=== PATIENT | female | born 1995 | race American Indian/Alaskan Native ===

== ENCOUNTER 2016-06-05 09:40 | Emergency (ER) | payer SELFPAY ==
[2016-06-05 10:25] VITALS: BP 135/88
[2016-06-05 11:25] LABS: Bilirubin,Urine NEG (Negative); Blood,Urine NEG (Negative); Ketones,Urine 20 mg/dL (Negative); Leukocyte Esterase,Urine NEG (Negative); Mucus,Urine FEW /HPF; Nitrite,Urine NEG (Negative); Protein,Urine <15 mg/dL mg/dL (Negative); Urobilinogen,Urine < 2.0 mg/dL (<2.0)
[2016-06-05 11:44] LABS: Alanine Aminotransferase 9 units/L (7-56); Albumin 3.9 g/dL (3.9-5); Alkaline Phosphatase 42 units/L (35-129); Anion Gap 17 mmol/L; Blood Urea Nitrogen 12 mg/dL (7-17); Calcium 9.1 mg/dL (8.4-10.2); Carbon Dioxide 23 mmol/L (22-30); Chloride 100.9 mmol/L (98-107); Glucose 78 mg/dL (65-100); Lipase 20 units/L (13-60); Potassium 4.1 mmol/L (3.6-5.0); Sodium 137 mmol/L (137-145); Total Protein 7.8 g/dL (6.3-8.2)
[2016-06-05 11:45] LABS: Basophils % (Auto) 0.6 % (0.0-1.8); Eosinophils % (Auto) 1.6 % (0.0-4.3); Hematocrit 36.2 % (30.3-42.9); Hemoglobin 11.4 gm/dl (10.1-14.3); Mean Corpuscular HGB Conc 31 % (30-34); Mean Corpuscular Volume 81 fl (79-97); Platelet Count 211 K/mm3 (140-440); Red Blood Count 4.45 M/mm3 (3.65-5.03); Red Cell Distribution Width 16.4 % (13.2-15.2); White Blood Count 5.6 K/mm3 (4.5-11.0)
[2016-06-05 11:48] LABS: Mean Corpuscular Hemoglobin 26 pg (28-32)
--- NOTE | 2016-06-07 12:52 | ED Elopement Review ---
ED Pt Elopement review - Results review Lab results: Laboratory Tests 06/05/16 06/05/16 06/05/16 11:11 11:11 11:11 WBC 5.6 RBC 4.45 Hgb 11.4 Hct 36.2 MCV 81 MCH 26 L MCHC 31 RDW 16.4 H Plt Count 211 Lymph % (Auto) 36.2 H [place] % (Auto) 3.8 Eos % (Auto) 1.6 Baso % (Auto) 0.6 Lymph # 2.0 [place] # 0.2 Eos # 0.1 Baso # 0.0 Seg Neutrophils % 57.8 Seg Neutrophils # 3.2 Sodium 137 Potassium 4.1 Chloride 100.9 Carbon Dioxide 23 Anion Gap 17 BUN 12 Creatinine 0.4 L Estimated GFR > 60 BUN/Creatinine Ratio 30.00 Glucose 78 Calcium 9.1 Total Bilirubin 1.0 AST 14 ALT 9 Alkaline Phosphatase 42 Total Protein 7.8 Albumin 3.9 Albumin/Globulin Ratio 1.0 Lipase 20 HCG, Qual Negative Urine Color Urine Turbidity Urine pH Ur Specific [place] Urine Protein Urine Glucose (UA) Urine Ketones Urine Blood Urine Nitrite Urine Bilirubin Urine Urobilinogen Ur Leukocyte Esterase Urine WBC (Auto) Urine RBC (Auto) U Epithel Cells (Auto) Urine Mucus 06/05/16 Unknown WBC RBC Hgb Hct MCV MCH MCHC RDW Plt Count Lymph % (Auto) [place] % (Auto) Eos % (Auto) Baso % (Auto) Lymph # [place] # Eos # Baso # Seg Neutrophils % Seg Neutrophils # Sodium Potassium Chloride Carbon Dioxide Anion Gap BUN Creatinine Estimated GFR BUN/Creatinine Ratio Glucose Calcium Total Bilirubin AST ALT Alkaline Phosphatase Total Protein Albumin Albumin/Globulin Ratio Lipase HCG, Qual Urine Color Yellow Urine Turbidity Clear Urine pH 6.0 Ur Specific [place] 1.025 Urine Protein <15 mg/dl Urine Glucose (UA) Neg Urine Ketones 20 Urine Blood Neg Urine Nitrite Neg Urine Bilirubin Neg Urine Urobilinogen < 2.0 Ur Leukocyte Esterase Neg Urine WBC (Auto) 1.0 Urine RBC (Auto) 3.0 U Epithel Cells (Auto) 2.0 Urine Mucus Few - Call Back decision Pt Call Back Decision: No action required
== END 2016-06-05 20:00 | disposition left against medical advice (07) ==
LOC: ED 09:40
DX: R10.11 Right upper quadrant pain (principal); Z53.21 Procedure and treatment not carried out due to patient leaving prior to being seen by health care provider
CPT/HCPCS: 36415; 80053; 81001; 83690; 84703; 85025

== ENCOUNTER 2016-06-08 12:00 | Emergency (ER) | payer SELFPAY ==
--- NOTE | 2016-06-08 12:34 | Emergency Department Report ---
Chief Complaint: Abdominal Pain Stated Complaint: ABDOMINAL PAIN Time Seen by Provider: 06/08/16 12:31 - HPI History of Present Illness: pt c/o abd pain since . PT denies f/c/n/v - ROS Review of Systems: + upper abd pain not worse after eating feels better with breath holding denies f/c/n/v - Exam Physical Exam: pt looks well, non toxic. steady gait. gcs 15 no ruq tenderness, + epigastric tenderness MSE screening note: Focused history and physical exam performed. Due to findings the following was ordered: labs ED Disposition for MSE Condition: Stable
[2016-06-08 12:54] LABS: Basophils % (Auto) 0.6 % (0.0-1.8); Eosinophils % (Auto) 2.2 % (0.0-4.3); Hematocrit 35.2 % (30.3-42.9); Hemoglobin 11.3 gm/dl (10.1-14.3); Mean Corpuscular HGB Conc 32 % (30-34); Mean Corpuscular Hemoglobin 26 pg (28-32); Mean Corpuscular Volume 81 fl (79-97); Platelet Count 225 K/mm3 (140-440); Red Blood Count 4.33 M/mm3 (3.65-5.03); Red Cell Distribution Width 16.5 % (13.2-15.2); White Blood Count 5.1 K/mm3 (4.5-11.0)
[2016-06-08 13:13] LABS: Albumin/Globulin Ratio 1.2 %; Alkaline Phosphatase 50 units/L (35-129); Anion Gap 15 mmol/L; Bilirubin,Total 0.4 mg/dL (0.1-1.2); Blood Urea Nitrogen 12 mg/dL (7-17); Calcium 9.3 mg/dL (8.4-10.2); Carbon Dioxide 23 mmol/L (22-30); Chloride 103.8 mmol/L (98-107); Glucose 90 mg/dL (65-100); Lipase 29 units/L (13-60); Sodium 138 mmol/L (137-145); Total Protein 7.4 g/dL (6.3-8.2)
[2016-06-08 13:20] LABS: Alanine Aminotransferase < 5 units/L (7-56)
[2016-06-08 22:55] VITALS: BP 151/86
[2016-06-08 23:20] LABS: Bacteria,Urine 2+ /HPF (Negative); Bilirubin,Urine NEG (Negative); Blood,Urine NEG (Negative); Ketones,Urine TR mg/dL (Negative); Leukocyte Esterase,Urine MOD (Negative); Mucus,Urine 3+ /HPF; Nitrite,Urine NEG (Negative); Urobilinogen,Urine < 2.0 mg/dL (<2.0)
[2016-06-08] MEDS ORDERED: LIDOCAINE VISCOUS 2% PO ONE (23:55)
[2016-06-08] MEDS ORDERED: ALUM-MAG HYDROX-SIMETH 200-200-20MG/5ML PO ONE (23:55)
--- NOTE | 2016-06-09 00:02 | Emergency Department Report ---
HPI - General Chief Complaint: Abdominal Pain Time Seen by Provider: 06/08/16 12:31 - HPI HPI: Room 2 The patient is a 20-year-old female presenting with a chief complaint of abdominal pain. The patient states for the past 3 days she has had sharp pain in her substernal chest epigastric region radiating to her back. Patient does admit to a pleuritic component. Patient does admit to shortness of breath. The patient admits to an occasional cough that is nonproductive. Patient denies any history of fevers. Patient denies any recent flights or long car trips. The patient currently gives her pain a score of 6/10 Location: [see above] Duration: [see above] Quality: Sharp Severity: 6/10 Modifying factors: [see above] Context: [see above] Mode of transportation: [not driving] ED Past Medical Hx - Past Medical History Previous Medical History?: No - Surgical History Past Surgical History?: No - Family History Family history: no significant - Social History Smoking Status: Never Smoker Substance Use Type: None - Medications Home Medications: Home Medications Medication Instructions Recorded Confirmed Last Taken Type Famotidine [Pepcid] 20 mg PO BID #30 tablet 06/09/16 Unknown Rx HYDROcodone/APAP 5-325 [[place] 1 - 2 each PO Q6HR PRN #14 tablet 06/09/16 Unknown Rx 5/325] ED Review of Systems ROS: Stated complaint: ABDOMINAL PAIN Other details as noted in HPI Comment: All other systems reviewed and negative Constitutional: denies: chills, fever Eyes: denies: eye pain, eye discharge, vision change ENT: denies: ear pain, throat pain Respiratory: cough, shortness of breath Cardiovascular: chest pain Endocrine: no symptoms reported Gastrointestinal: denies: abdominal pain, nausea, diarrhea Genitourinary: denies: urgency, dysuria, discharge Musculoskeletal: denies: back pain, joint swelling, arthralgia Skin: denies: rash, lesions Neurological: denies: headache, weakness, paresthesias Psychiatric: denies: anxiety, depression Hematological/Lymphatic: denies: easy bleeding, easy bruising Physical Exam - Physical Exam Vital Signs: Vital Signs 06/08/16 06/08/16 12:32 22:51 Temperature 98.6 F 98.4 F Pulse Rate 74 78 Respiratory 16 18 Rate Blood Pressure 146/89 Blood Pressure 151/86 [Left] O2 Sat by Pulse 100 100 Oximetry Physical Exam: GENERAL: The patient is well-developed well-nourished male lying on stretcher not appearing to be in acute distress. [] HEENT: Normocephalic. Atraumatic. Extraocular motions are intact. Patient has moist mucous membranes. NECK: Supple. Regular midline CHEST/LUNGS: Clear to auscultation. There is no respiratory distress noted. HEART/CARDIOVASCULAR: Regular. There is no tachycardia. There is no gallop rub or murmur. ABDOMEN: Abdomen is soft, all discomfort to palpation in epigastric region. Patient has normal bowel sounds. There is no abdominal distention. SKIN: There is no rash. There is no edema. There is no diaphoresis. NEURO: The patient is awake, alert, and oriented. The patient is cooperative. The patient has normal speech MUSCULOSKELETAL: There is no evidence of acute injury. ED Course Vital Signs 06/08/16 06/08/16 12:32 22:51 Temperature 98.6 F 98.4 F Pulse Rate 74 78 Respiratory 16 18 Rate Blood Pressure 146/89 Blood Pressure 151/86 [Left] O2 Sat by Pulse 100 100 Oximetry ED Medical Decision Making - Lab Data Result diagrams: 06/08/16 12:44 06/08/16 12:44 Laboratory Tests 06/08/16 06/08/16 06/08/16 12:44 12:44 23:04 WBC 5.1 RBC 4.33 Hgb 11.3 Hct 35.2 MCV 81 MCH 26 L MCHC 32 RDW 16.5 H Plt Count 225 Lymph % (Auto) 37.9 H [place] % (Auto) 4.9 Eos % (Auto) 2.2 Baso % (Auto) 0.6 Lymph # 1.9 [place] # 0.3 Eos # 0.1 Baso # 0.0 Seg Neutrophils % 54.4 Seg Neutrophils # 2.8 D-Dimer Sodium 138 Potassium 4.0 Chloride 103.8 Carbon Dioxide 23 Anion Gap 15 BUN 12 Creatinine 0.6 L Estimated GFR > 60 BUN/Creatinine Ratio 20.00 Glucose 90 Calcium 9.3 Total Bilirubin 0.4 AST 22 ALT < 5 L Alkaline Phosphatase 50 Total Creatine Kinase CK-MB (CK-2) CK-MB (CK-2) Rel Index Troponin T Total Protein 7.4 Albumin 4.0 Albumin/Globulin Ratio 1.2 Lipase 29 Urine Color Yellow Urine Turbidity Cloudy Urine pH 5.0 Ur Specific [place] 1.031 H Urine Protein 30 mg/dl Urine Glucose (UA) Neg Urine Ketones Tr Urine Blood Neg Urine Nitrite Neg Ur Reducing Substances Not Reportable Urine Bilirubin Neg Urine Ictotest Not Reportable Urine Urobilinogen < 2.0 Ur Leukocyte Esterase Mod Urine WBC (Auto) 24.0 H Urine RBC (Auto) 5.0 U Epithel Cells (Auto) 14.0 H Urine Bacteria (Auto) 2+ Urine Mucus 3+ Urine HCG, Qual Negative 06/09/16 06/09/16 00:21 00:21 WBC RBC Hgb Hct MCV MCH MCHC RDW Plt Count Lymph % (Auto) [place] % (Auto) Eos % (Auto) Baso % (Auto) Lymph # [place] # Eos # Baso # Seg Neutrophils % Seg Neutrophils # D-Dimer 886.24 H Sodium Potassium Chloride Carbon Dioxide Anion Gap BUN Creatinine Estimated GFR BUN/Creatinine Ratio Glucose Calcium Total Bilirubin AST ALT Alkaline Phosphatase Total Creatine Kinase 61 CK-MB (CK-2) 1.1 CK-MB (CK-2) Rel Index 1.8 Troponin T < 0.010 Total Protein Albumin Albumin/Globulin Ratio Lipase Urine Color Urine Turbidity Urine pH Ur Specific [place] Urine Protein Urine Glucose (UA) Urine Ketones Urine Blood Urine Nitrite Ur Reducing Substances Urine Bilirubin Urine Ictotest Urine Urobilinogen Ur Leukocyte Esterase Urine WBC (Auto) Urine RBC (Auto) U Epithel Cells (Auto) Urine Bacteria (Auto) Urine Mucus Urine HCG, Qual - EKG Data -: EKG Interpreted by Me EKG shows normal: sinus rhythm Rate: normal - EKG Data When compared to previous EKG there are: no significant change Interpretation: unchanged when compared t (09/12/2015) - Radiology Data Radiology results: report reviewed (CT chest), image reviewed (CT chest) CT chest (read by radiologist)-there is no PE. Lungs are clear - Differential Diagnosis gastritis, pancreatitis, pericarditis, GERD, peptic ulcer disease, PE Critical care attestation.: If time is entered above; I have spent that time in minutes in the direct care of this critically ill patient, excluding procedure time. ED Disposition Clinical Impression: Abdominal pain, Atypical chest pain Disposition: DISCHARGED TO HOME OR SELFCARE Is pt being admited?: No Does the pt Need Aspirin: No Condition: Stable Instructions: Abdominal Pain (ED), Chest Pain (ED) Additional Instructions: Return to the emergency department immediately should you develop worsening symptoms, fever, inability to tolerate food or liquid or any other concerns. 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 Please follow up with him for further evaluation) Time of Disposition: 03:01
[2016-06-09 01:01] LABS: Creatine Kinase MB 1.1 ng/mL (0.0-4.0)
[2016-06-09] MEDS ORDERED: NACL 0.9% 1000 ML 1,000 ML IV ONE (01:02)
[2016-06-09] MEDS ORDERED: PEPCID IV ONE ×2 (01:03→03:20)
[2016-06-09 02:09] LABS: Creatine Kinase 61 units/L (30-135)
[2016-06-09] MEDS ORDERED: NACL ONE (02:14)
--- NOTE | 2016-06-09 02:50 | Cat Scan Report ---
FINAL REPORT PROCEDURE: CT ANGIO CHEST TECHNIQUE: Computerized tomographic angiography of the chest was performed after the IV injection of iodinated nonionic contrast including image processing. The image data was postprocessed using 2-dimensional multiplanar reformatted (MPR) and 3-dimensional (MIP and/or volume rendered) techniques. HISTORY: chest pain, pleurisy COMPARISON: 09/09/2015 FINDINGS: Heart and pericardium: Normal. Thoracic aorta: Normal. Pulmonary vasculature: Normal. Lymph nodes: No enlarged thoracic lymph nodes. Lungs: Lungs are clear. No infiltrate, effusion or pneumothorax. The central airway is patent.. Pleural space: No effusion, thickening, or pneumothorax. Musculoskeletal structures: No significant abnormality. Upper abdominal structures: No significant abnormality. IMPRESSION: There is no evidence of pulmonary arterial emboli. The lungs are clear without infiltrate, effusion or pneumothorax.
== END 2016-06-09 03:50 | disposition home or self-care (01) ==
LOC: ED 12:00
DX: R10.13 Epigastric pain (principal); R07.89 Other chest pain
CPT/HCPCS: 36415; 71275; 80053; 81001; 81025; 82550; 82553; 83690; 84484; 85025; 85379; 93005; 93010; 96374; 99284; Q9967

== ENCOUNTER 2017-08-06 10:07 | Emergency (ER) | payer MEDICAID ==
[2017-08-06 10:34] VITALS: BP 120/78
[2017-08-06] MEDS ORDERED: TYLENOL PO ONE (11:47)
[2017-08-06] MEDS ORDERED: TYLENOL ONE ×2 (11:57)
[2017-08-06 12:30] LABS: Bacteria,Urine 1+ /HPF (Negative); Bilirubin,Urine NEG (Negative); Blood,Urine NEG (Negative); Color,Urine Yellow (Yellow); Mucus,Urine FEW /HPF; Protein,Urine <15 mg/dL mg/dL (Negative); Urobilinogen,Urine < 2.0 mg/dL (<2.0)
--- NOTE | 2017-08-06 12:41 | Emergency Department Report ---
ED HPI - General Chief complaint: Abdominal Pain Stated complaint: ABDOMINAL PRESSURE Time Seen by Provider: 08/06/17 11:45 Source: patient Mode of arrival: Ambulatory Limitations: No Limitations - History of Present Illness Initial comments: 22-year-old female presents with complaint of suprapubic pressure since yesterday. Slight increased urinary frequency. Denies nausea vomiting fever chills or vaginal bleeding. I asked patient several times and she is adamant she has no vaginal bleeding. Denies any flank pain. Patient is awake alert and oriented 3 and nontoxic appearing. States she had an ultrasound approximately one month ago. Patient primarily complaining of sensation of bladder pressure. Denies any vaginal discharge MD Complaint: other (suprapubic pressure) Onset/Timin -: days(s) Radiation: suprapubic Severity: mild Quality: other (pressure) Consistency: intermittent - Related Data Previous Rx's Medication Instructions Recorded Last Taken Type Famotidine [Pepcid] 20 mg PO BID #30 tablet 06/09/16 Unknown Rx HYDROcodone/APAP 5-325 [[place] 1 - 2 each PO Q6HR PRN #14 tablet 06/09/16 Unknown Rx 5/325] Nitrofurantoin Monohyd/M-Cryst 100 mg PO BID #14 capsule 08/06/17 Unknown Rx [Macrobid 100 mg Capsule] Allergies Allergy/AdvReac Type Severity Reaction Status Date / Time No Known Allergies Allergy Unverified 02/19/13 20:36 ED Review of Systems ROS: Stated complaint: ABDOMINAL PRESSURE Other details as noted in HPI Constitutional: denies: chills, fever Eyes: denies: eye pain, eye discharge, vision change ENT: denies: ear pain, throat pain Respiratory: denies: cough, shortness of breath, wheezing Cardiovascular: denies: chest pain, palpitations Endocrine: no symptoms reported Gastrointestinal: denies: abdominal pain, nausea, diarrhea Genitourinary: urgency. denies: dysuria, discharge Musculoskeletal: denies: back pain, joint swelling, arthralgia Skin: denies: rash, lesions Neurological: denies: headache, weakness, paresthesias Psychiatric: denies: anxiety, depression Hematological/Lymphatic: denies: easy bleeding, easy bruising ED Past Medical Hx - Past Medical History Hx Hypertension: No Hx Deep Vein Thrombosis: No Hx Renal Disease: No Hx Sickle Cell Disease: No Hx Seizures: No Hx Asthma: No Hx HIV: No - Surgical History Past Surgical History?: No - Social History Smoking Status: Never Smoker Substance Use Type: None - Medications Home Medications: Home Medications Medication Instructions Recorded Confirmed Last Taken Type Famotidine [Pepcid] 20 mg PO BID #30 tablet 06/09/16 Unknown Rx HYDROcodone/APAP 5-325 [[place] 1 - 2 each PO Q6HR PRN #14 tablet 06/09/16 Unknown Rx 5/325] Nitrofurantoin Monohyd/M-Cryst 100 mg PO BID #14 capsule 08/06/17 Unknown Rx [Macrobid 100 mg Capsule] ED Physical Exam - General Limitations: No Limitations General appearance: alert, in no apparent distress - Head Head exam: Present: atraumatic, normocephalic - Eye Eye exam: Present: normal appearance, PERRL, EOMI - ENT ENT exam: Present: mucous membranes moist - Neck Neck exam: Present: normal inspection - Respiratory Respiratory exam: Present: normal lung sounds bilaterally. Absent: respiratory distress - Cardiovascular Cardiovascular Exam: Present: regular rate, normal rhythm. Absent: systolic murmur, diastolic murmur, rubs, gallop - GI/Abdominal GI/Abdominal exam: Present: soft (gravid abdomen), tenderness (slight suprapubic tenderness. No flank pain on exam), normal bowel sounds - Extremities Exam Extremities exam: Present: normal inspection - Back Exam Back exam: Present: normal inspection - Neurological Exam Neurological exam: Present: alert, oriented X3 - Psychiatric Psychiatric exam: Present: normal affect, normal mood - Skin Skin exam: Present: warm, dry, intact, normal color. 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 ED Disposition Clinical Impression: Round ligament pain Urinary tract infection Qualifiers: Urinary tract infection type: acute cystitis Hematuria presence: without hematuria Qualified Code(s): N30.00 - Acute cystitis without hematuria Disposition: TO HOME OR SELFCARE Is pt being admited?: No Does the pt Need Aspirin: No Condition: Stable Instructions: Abdominal Pain (ED), Urinary Tract Infection in Women (ED), (ED) Prescriptions: Nitrofurantoin Monohyd/M-Cryst [Macrobid 100 mg Capsule] 100 mg PO BID #14 capsule Referrals: [facility] [Provider Group] - 3-5 Days Forms: Work/School Release Form(ED) Time of Disposition: 13:21
--- NOTE | 2017-08-06 19:24 | Ultrasound Report ---
FINAL REPORT EXAM: US OB > = 14 WEEKS FETUS HISTORY: abdominal pain pelvic pain with standing. TECHNIQUE: Limited obstetrical ultrasound PRIORS: None. FINDINGS: LMP: 04/08/2017 clinical Age: 17 w 1 D US Age (average) = 17 w 1 d EFW (BPD,HC,AC,FL) = 182 g +/ -27 g (0 lbs .6 Oz. +/- 1 oz.) LMP EDC 01/13/2018 US EDC 01/13/2018 CI 86.9 (range 74 to 83) HC/AC 1.21 (range 1.07 To 1.29) FL/BPD 65.4 FL/HC 17.2 (range 11.6 to 20.6) FL/AC 20.9 BPD 3.6 cm corresponding to estimated age 17 weeks 1 day HC 13.7 cm corresponding to estimated age 17 weeks 1 day AC 11.3 cm corresponding to estimated age 17 weeks 1 day FL 2.4 cm corresponding to estimated age 17 weeks 1 day Presentation: Transverse with the head to the maternal right Activity: Monitored Placental location: Posterior Placental grade: 0 Cardiac motion: 146 BPM using M-mode doppler Amniotic Fluid Volume: Adequate Cervical Length: 3.2 cm IMPRESSION: Single intrauterine viable with an approximate age of 17 weeks 1 days. Good correlation to the LMP is noted.
== END 2017-08-06 13:22 | disposition home or self-care (01) ==
LOC: ED 10:07
DX: O23.42 Unspecified infection of urinary tract in pregnancy, second trimester (principal); Z3A.17 17 weeks gestation of pregnancy
CPT/HCPCS: 36415; 76805; 81001; 84702; 99284

== ENCOUNTER 2017-12-08 11:55 | Outpatient (CLI) | payer MEDICAID ==
[2017-12-08 12:12] VITALS: BP 133/86
[2017-12-08] MEDS ORDERED: LACTATED RINGERS 500 ML IV ONE (16:32)
== END 2017-12-08 18:00 | disposition home or self-care (01) ==
LOC: TRG 11:55 → LD 11:56 → TRG 18:00
PROVIDERS: ATTEND Obstetrics & Gynecology
DX: O47.03 False labor before 37 completed weeks of gestation, third trimester (principal); Z3A.37 37 weeks gestation of pregnancy
CPT/HCPCS: 59025; J7120